=== PATIENT | male | born 1985 | race Caucasian/White ===

== ENCOUNTER 2023-11-17 06:27 | Observation (INO) ==
[2023-11-17] MEDS: LR 1,000 ML IV 1,000 ML IV ONE (06:45)
[2023-11-17] MEDS: NOZIN NASAL SANITIZER TP ONE (06:45)
[2023-11-17] MEDS: NS 100 ML IV 100 ML ONE (07:40)
[2023-11-17] MEDS: ANCEF VIAL 1 GRAM ONE (07:40)
[2023-11-17] MEDS: MARCAINE 0.25% INJ ONE (07:42)
[2023-11-17] MEDS: OFIRMEV IV 1000 MG VIAL 1,000 MG/100 ML VIAL IV ONE (07:42)
[2023-11-17] MEDS ORDERED: XYLOCAINE 2 % (PLAIN) ONE (07:42)
[2023-11-17] MEDS: PEPCID 20 MG VIAL ONE (07:42)
[2023-11-17] MEDS: TORADOL 30 MG VIAL ONE (07:42)
[2023-11-17] MEDS: FENTANYL VIAL INJ 100 mcg ONE (07:42)
[2023-11-17] MEDS: ZOFRAN INJ 4 MG VIAL ONE ×2 (07:42→10:36)
[2023-11-17] MEDS: VERSED ONE (07:42)
[2023-11-17] MEDS: DIPRIVAN VIAL 20 ML ONE (07:42)
[2023-11-17] MEDS: DECADRON INJ ONE (07:42)
[2023-11-17] MEDS: KETAMINE HCL ONE (07:42)
[2023-11-17] MEDS ORDERED: ULTANE GAS IN ONE (07:42)
[2023-11-17] MEDS: DILAUDID INJ ONE (08:25)
[2023-11-17] MEDS: COMPAZINE INJ IM ONE (12:28)
[2023-11-17] MEDS ORDERED: PERCOCET TAB 5/325 MG PO PRN (13:33)
[2023-11-17] MEDS ORDERED: TYLENOL 325 MG TAB PO PRN (13:33)
[2023-11-17] MEDS ORDERED: NS IRRIGATION* 1,000 ML IR ONE (13:48)
[2023-11-17] MEDS: K-DUR TAB 20 MEQ PO SCH (15:19)
[2023-11-17] MEDS: ZOFRAN INJ 4 MG VIAL IVP PRN (15:23)
[2023-11-17] MEDS: LR 1,000 ML IV 1,000 ML IV SCH (15:24)
[2023-11-17] MEDS ORDERED: K-DUR TAB 20 MEQ PO SCH (16:00)
[2023-11-17 16:14] VITALS: BMI 27.2
[2023-11-17] MEDS: PHENERGAN INJ 25 MG IM PRN (18:31)
[2023-11-17] MEDS: COLACE CAP 100 MG PO SCH (20:57)
[2023-11-18] MEDS: LR 1,000 ML IV 1,000 ML IV ONE (00:58)
[2023-11-18] MEDS: LR 1,000 ML IV 1,000 ML IV SCH (00:58)
[2023-11-18 06:56] LABS: BLOOD UREA NITROGEN 13 mg/dL (7-18); CALCIUM 8.7 mg/dL (8.5-10.1); CARBON DIOXIDE 28.4 mmol/L (21-32); CHLORIDE 103 mmol/L (98-107); CREATININE 1.08 mg/dL (0.70-1.30); GLUCOSE 96 mg/dL (65-99); POTASSIUM 3.5 mmol/L (3.5-5.1); SODIUM 139 mmol/L (136-145); eGFR NON BLACK RACES > 60 (>60)
[2023-11-18 07:22] LABS: BASOPHILS % (AUTO) 0.1 % (0.2-1.0); EOSINOPHILS % (AUTO) 0.3 % (0.9-2.9); HEMATOCRIT 40.6 % (42.0-54.0); HEMOGLOBIN 13.6 g/dL (13.5-18.0); LYMPHOCYTES # (AUTO) 2.1 X10^3/uL (1.3-2.9); LYMPHOCYTES % (AUTO) 19.3 % (21.0-51.0); MEAN CORPUSCULAR HGB CONC 33.6 g/dL (33.0-35.0); MEAN CORPUSCULAR VOLUME 83.5 fL (80.0-100.0); MEAN PLATELET VOLUME 9.1 fL (7.4-11.0); MONOCYTES % (AUTO) 9.6 % (0.0-13.0); NEUTROPHILS # (AUTO) 7.7 x10^3/uL (2.2-4.8); NEUTROPHILS % (AUTO) 70.7 % (42.0-75.0); PLATELET COUNT 131 X10^3/uL (150.0-450.0); RED BLOOD COUNT 4.86 X10^6/uL (4.7-6.0); RED CELL DISTRIBUTION WIDTH 15.2 % (11.6-16.5); WHITE BLOOD COUNT 10.9 X10^3/uL (3.6-10.0)
[2023-11-18 09:30] VITALS: RESP 21
[2023-11-18 12:49] VITALS: BP 123/73; PULSE 105; TEMP 98; O2SAT 98
--- NOTE | 2023-11-18 13:17 | NOTE.SOAP ---
Soap Note Note for Day of Date of Exam: 11/18/23 Subjective Data Subjective Data: Patient resting in bed. States his nasuea is much better than yesterday. Objective Data Objective Data: Right Lower Extremity Exam: Dressing clean, dry, and intact. Splint in place. No striekthrough noted. Assessment Assessment: 38 year old M POD#1 arthroscopy and ligament repair, right ankle Plan Plan: - NWB to RLE - Okay for discharge from our perspective. - Scripts in chart.
--- NOTE | 2023-11-19 13:03 | W.DIS.FURT ---
Summary of Discharge Discharge Summary of Date Date of Exam: 11/18/23 Admission Date Date of Admission: 11/17/23 Admission Diagnosis Hospital Course: Pt is a 38 year old male that is POD#1 arthroscopy and ligament repair, right ankle. He was admitted for monitoring after having nausea and vomiting after surgery. This morning he is feeling a lot better and symptoms have resolved. He was discharged in stable condition. NWB to RLE. Instructed to follow up with pcp and podiatry outpatient. Vital Signs: Vital Signs (72 hours) 11/17/23 06:34 11/17/23 06:34 11/17/23 07:42 Temperature 97.6 F Pulse Rate 76 76 Pulse Rate [Left Brachial] Respiratory Rate 17 20 Blood Pressure 132/82 Blood Pressure [Left Arm] O2 Sat by Pulse Oximetry 94 L Oxygen Delivery Method Room Air 11/17/23 08:25 11/17/23 09:17 11/17/23 09:22 Temperature 97 F L Pulse Rate 97 H 82 Pulse Rate [Left Brachial] Respiratory Rate 20 12 12 Blood Pressure 109/55 110/55 Blood Pressure [Left Arm] O2 Sat by Pulse Oximetry 97 97 Oxygen Delivery Method Aerosol Face Tent Aerosol Face Tent 11/17/23 09:27 11/17/23 09:32 11/17/23 09:37 Temperature Pulse Rate 81 78 99 H Pulse Rate [Left Brachial] Respiratory Rate 12 16 16 Blood Pressure 102/53 103/57 129/70 Blood Pressure [Left Arm] O2 Sat by Pulse Oximetry 97 97 95 Oxygen Delivery Method Aerosol Face Tent Aerosol Face Tent Nasal Cannula 11/17/23 09:42 11/17/23 09:47 11/17/23 09:50 Temperature Pulse Rate 99 H 92 H 89 Pulse Rate [Left Brachial] Respiratory Rate 16 16 16 Blood Pressure 116/55 131/67 130/70 Blood Pressure [Left Arm] O2 Sat by Pulse Oximetry 95 95 95 Oxygen Delivery Method Nasal Cannula Nasal Cannula Nasal Cannula 11/17/23 10:07 11/17/23 10:20 11/17/23 10:50 Temperature Pulse Rate 90 93 H 74 Pulse Rate [Left Brachial] Respiratory Rate 16 18 18 Blood Pressure 125/65 129/68 126/66 Blood Pressure [Left Arm] O2 Sat by Pulse Oximetry 96 96 94 L Oxygen Delivery Method Nasal Cannula Nasal Cannula Nasal Cannula 11/17/23 11:05 11/17/23 11:45 11/17/23 10:35 Temperature Pulse Rate 86 77 78 Pulse Rate [Left Brachial] Respiratory Rate 18 18 18 Blood Pressure 128/71 111/63 120/58 Blood Pressure [Left Arm] O2 Sat by Pulse Oximetry 94 L 95 96 Oxygen Delivery Method Room Air Room Air Nasal Cannula 11/17/23 12:15 11/17/23 14:55 11/17/23 14:15 Temperature 97.6 F Pulse Rate 71 Pulse Rate [Left Brachial] 79 Respiratory Rate 20 17 Blood Pressure 128/77 Blood Pressure [Left Arm] 104/57 O2 Sat by Pulse Oximetry 98 98 Oxygen Delivery Method Room Air Room Air 11/17/23 14:30 11/17/23 14:45 11/17/23 15:00 Temperature 97.6 F 97.3 F L 97.1 F L Pulse Rate Pulse Rate [Left Brachial] 76 89 88 Respiratory Rate 17 18 17 Blood Pressure Blood Pressure [Left Arm] 105/54 111/56 123/72 O2 Sat by Pulse Oximetry 99 97 98 Oxygen Delivery Method 11/17/23 15:15 11/17/23 16:15 11/17/23 17:15 Temperature 97.1 F L 96.8 F L 97.4 F L Pulse Rate Pulse Rate [Left Brachial] 89 78 100 H Respiratory Rate 18 18 20 Blood Pressure Blood Pressure [Left Arm] 123/56 123/72 125/74 O2 Sat by Pulse Oximetry 98 98 99 Oxygen Delivery Method 11/17/23 18:15 11/17/23 20:00 11/18/23 00:00 Temperature 97.5 F L 97.9 F 97.9 F Pulse Rate Pulse Rate [Left Brachial] 103 H 91 H 93 H Respiratory Rate 18 18 18 Blood Pressure Blood Pressure [Left Arm] 117/65 112/58 104/55 O2 Sat by Pulse Oximetry 97 96 95 Oxygen Delivery Method 11/18/23 04:00 11/17/23 21:55 11/18/23 08:00 Temperature 97.8 F 98.1 F Pulse Rate Pulse Rate [Left Brachial] 96 H 90 Respiratory Rate 18 21 Blood Pressure Blood Pressure [Left Arm] 116/60 113/61 O2 Sat by Pulse Oximetry 96 97 Oxygen Delivery Method Room Air Labs: Laboratory Last Values WBC 10.9 X10^3/uL (3.6-10.0) H 11/18/23 05:21 RBC 4.86 X10^6/uL (4.7-6.0) 11/18/23 05:21 Hgb 13.6 g/dL (13.5-18.0) 11/18/23 05:21 Hct 40.6 % (42.0-54.0) L 11/18/23 05:21 MCV 83.5 fL (80.0-100.0) 11/18/23 05:21 MCH 28.0 pg (27.0-34.0) 11/18/23 05:21 MCHC 33.6 g/dL (33.0-35.0) 11/18/23 05:21 RDW 15.2 % (11.6-16.5) 11/18/23 05:21 Plt Count 131 X10^3/uL (150.0-450.0) L 11/18/23 05:21 MPV 9.1 fL (7.4-11.0) 11/18/23 05:21 Neut % (Auto) 70.7 % (42.0-75.0) 11/18/23 05:21 Lymph % (Auto) 19.3 % (21.0-51.0) L 11/18/23 05:21 Gem % (Auto) 9.6 % (0.0-13.0) 11/18/23 05:21 Eos % (Auto) 0.3 % (0.9-2.9) L 11/18/23 05:21 Baso % (Auto) 0.1 % (0.2-1.0) L 11/18/23 05:21 Neut # (Auto) 7.7 x10^3/uL (2.2-4.8) H 11/18/23 05:21 Lymph # (Auto) 2.1 X10^3/uL (1.3-2.9) 11/18/23 05:21 Gem # (Auto) 1.0 x10^3/uL (0.3-0.8) H 11/18/23 05:21 Eos # (Auto) 0.0 x10^3/uL (0.0-0.2) 11/18/23 05:21 Baso # (Auto) 0.0 X10^3/uL (0.0-0.1) 11/18/23 05:21 Absolute Nucleated RBC 0.2 /100WBC 11/18/23 05:21 Sodium 139 mmol/L (136-145) 11/18/23 05:21 Corrected Sodium TNP 11/18/23 05:21 Potassium 3.5 mmol/L (3.5-5.1) 11/18/23 05:21 Chloride 103 mmol/L (98-107) 11/18/23 05:21 Carbon Dioxide 28.4 mmol/L (21-32) 11/18/23 05:21 BUN 13 mg/dL (7-18) 11/18/23 05:21 Creatinine 1.08 mg/dL (0.70-1.30) 11/18/23 05:21 Est GFR (MDRD) Af Amer > 60 (>60) 11/18/23 05:21 Est GFR (MDRD) Non-Af > 60 (>60) 11/18/23 05:21 Glucose 96 mg/dL (65-99) 11/18/23 05:21 Calcium 8.7 mg/dL (8.5-10.1) 11/18/23 05:21 Reason For Visit: POST OP- NAUSEA AND VOMITING Discharge Date Discharge Date: 11/18/23 Discharge Diagnosis Plan of Treatment: Continue with present treatment and follow up plan. Pt is to keep follow up appointment as instructed and take medications as ordered. Discharge Medications Discharge Medications: No Known Drug Allergies Allergy (Verified 11/17/23 06:52) CONTINUE taking the following medications NK 11/17/23 [History] Discharge Plan Discharge Plan Hospital Course: Pt is a 38 year old male that is POD#1 arthroscopy and ligament repair, right ankle. He was admitted for monitoring after having nausea and vomiting after surgery. This morning he is feeling a lot better and symptoms have resolved. He was discharged in stable condition. NWB to RLE. Instructed to follow up with pcp and podiatry outpatient. Patient Disposition: 01 HOME, SELF-CARE Condition: Stable Health Concerns: Post Hospitalization: new medications and changes needed to prevent readmission or further decline. Pt educated and given instructions on all concerns. Plan of Treatment: Continue with present treatment and follow up plan. Pt is to keep follow up appointment as instructed and take medications as ordered. Prescriptions: New ondansetron 8 mg Tablet,Disintegrating 8 mg PO Q8H PRNQty: 36 0RF oxycodone-acetaminophen [Percocet] 10-325 mg Tablet 1 tab PO Q4H MDD 4 PRNQty: 36 0RF Rx Instructions: , aspirin 325 mg Capsule 325 mg PO BID Qty: 60 0RF Orders to Discharge Patient Discharge Orders: Discharge (Routine); Ordered 11/18/23 Ordered By: TED SMITH Follow ups/Referrals Follow ups/Referrals: CHARIS ARENAS [Primary Care Provider] - PCP Foster Cruz [CONSULTING PHYSICIAN] - 11/23/23 9:45 am Instructions Instructions: General Anesthesia, Adult, Care After, Ondansetron tablets, Ankle Arthroscopy, Care After, Acetaminophen; Oxycodone tablets, Aspirin, ASA oral tablets Activity Restrictions/Additional Instructions: POST OPERATIVE INSTRUCTIONS: (1) A RESPONSIBLE ADULT SHOULD REMAIN WITH YOU TODAY, YOU SHOULD BE ASSISTED TO THE BATHROOM FOR 6-8 HOURS. REST QUIETLY THE REMAINDER OF THE DAY. (2) DEEP BREATHING AND COUGHING EXERCISES FOR THE NEXT 6-8 HOURS. (3)SMOKE ONLY IF SOMEONE IS WITH YOU FOR THE NEXT 12 HOURS. (4) DIET TOLERATED (5) DO NOT DRIVE YOUR AUTOMOBILE OR OPERATE MACHINERY FOR 12-18 HOURS AFTER RECEIVING A GENERAL ANESTHETIC OR WHILE TAKING NARCOTIC PAIN MEDICATION. (6) SOME ANESTHETIC AGENTS AND MEDICATION TAKEN FOR PAIN MAY CAUSE NAUSEA. IF NAUSEA PERSISTS FOR SEVERAL HOURS AT HOME, CALL YOUR DOCTOR. (7) OBSERVE AFFECTED AREA FOR CIRCULATION, CHANGE OF COLOR, NUMBNESS OR TINGLING, COLDNESS, INCREASED PAIN. (8) OBSERVE OPERATIVE AREA FOR SIGNS OF INFECTION: REDNESS, SWELLING, FOUL ODOR, DRAINAGE, AND NOTIFY FOR ANY CONCERNS OR FEVER OVER 101.0. (9) KEEP OPERATIVE AREA CLEAN AND DRY. DO NOT REMOVE DRESSING UNLESS INSTRUCTED TO DO SO BY YOUR DOCTOR. (10) RESUME ALL PREVIOUS MEDICATIONS PRESCRIBED BY YOUR DOCTOR. (11) TAKE PAIN MEDICATIONS PRESCRIBED. (12) NO LIFTING OVER 10LBS. (13) Do NOT bear weight on right lower leg (14) Ice behind right knee 20min on/10 min off (15) Elevate right leg with 2 pillows while resting (16) Follow post op instruction sheet provided by Dr Cruz FOLLOW UP WITH DOCTOR Anthony ON November 22 at 9:45am . Stand Alone Forms: Post Hospital Follow Up Care
== END 2023-11-18 13:05 | disposition home or self-care (01) ==
LOC: SURG1 06:27 → MED/SURG 06:27 → EDUNIT# 10:00
PROVIDERS: ADMIT Obstetrics & Gynecology Obstetrics; ATTEND Obstetrics & Gynecology Obstetrics
DX: R11.2 Nausea with vomiting, unspecified; S93.491A Sprain of other ligament of right ankle, initial encounter; M65.871 Other synovitis and tenosynovitis, right ankle and foot; G89.28 Other chronic postprocedural pain; X58.XXXA Exposure to other specified factors, initial encounter; R42 Dizziness and giddiness